=== PATIENT | female | born 1985 | race Caucasian/White ===

== ENCOUNTER 2017-05-27 15:29 | Emergency (ER) | payer BC ==
[~2017-05-27] VITALS: Ht 149.8 cm; Wt 65.8 kg
[~2017-05-27 15:29] MED LIST: AMOXIL500 MG PO; ATIVAN1 MG PO; MEDROL DOSEPAK4 MG PO; NKHM; PREDNISONE; ROBITUSSIN-DM 110 ML PO
[2017-05-27 15:34] VITALS: BP 125/73
[2017-05-27] MEDS ORDERED: CEPHALEXIN500 M1 PO (17:20)
== END 2017-05-27 17:53 | disposition home or self-care (01) ==
LOC: ED 15:29
DX: S90.852A Superficial foreign body, left foot, initial encounter (principal); Z98.890 Other specified postprocedural states; W22.8XXA Striking against or struck by other objects, initial encounter; Y93.89 Activity, other specified; Y92.89 Other specified places as the place of occurrence of the external cause; Y99.9 Unspecified external cause status

== ENCOUNTER 2018-08-05 06:36 | Emergency (ER) | payer BC ==
[~2018-08-05] VITALS: Ht 149.8 cm; Wt 68.0 kg
[~2018-08-05 06:36] MED LIST changes: +CEPHALEXIN500 M1 PO
[2018-08-05] MEDS ORDERED: LOESTRIN 21 1-1 EACH PO (06:49)
[2018-08-05 07:24] LABS: BASO % 0.1 % (0.0-1.0); HEMATOCRIT 38.8 % (37.0-47.0); LYMPH # 0.7 10*3/uL (1.3-4.4); MEAN CELL VOLUME 91.7 fl (81.0-99.0); MEAN CORPUSCULAR HGB 30.7 pg (27.0-31.0); MEAN CORPUSCULAR HGB CONC 33.5 g/dl (33.0-37.0); MEAN PLATELET VOLUME 9.7 fl (9.6-12.3); MONO # 0.2 10*3/uL (0.1-1.0); MONO % 2.6 % (3.0-9.0); NEUT # 8.1 10*3/uL (2.3-7.9); NEUT % 89.1 % (47.0-73.0); PLATELET COUNT AUTOMATED 275 10*3/uL (130-400); RED BLOOD COUNT 4.23 10*6/uL (4.10-5.10); RED CELL DISTRI WIDTH 12.2 % (0-14.5); WHITE BLOOD COUNT 9.1 10*3/uL (4.8-10.8)
[2018-08-05 07:41] LABS: ALBUMIN 3.6 gm/dl (3.1-4.5); ALKALINE PHOSPHATASE 46 U/L (45-117); BUN 10 mg/dl (7-24); CHLORIDE 104 mmol/L (98-107); CREATININE 0.87 mg/dL (0.55-1.02); LIPASE 82 U/L (73-393); SGOT/AST 14 IU/L (3-35); SGPT/ALT 27 U/L (12-78); SODIUM 138 mmol/L (136-145); TOTAL PROTEIN 7.9 gm/dL (6.4-8.2)
[2018-08-05 07:42] LABS: BILIRUBIN NEGATIVE (NEGATIVE); BLOOD 3+ (NEGATIVE); CLARITY CLOUDY (CLEAR); COLOR YELLOW (YELLOW); GLUCOSE NEGATIVE (NEGATIVE); KETONE TRACE (NEGATIVE); LEUKO ESTERASE NEGATIVE (NEGATIVE); NITRITE NEGATIVE (NEGATIVE); PH 5.5 (5.0-9.0); UROBILINOGEN 0.2 E.U./dl (0.2-1.0)
[2018-08-05 07:51] LABS: BACTERIA 3+; EPITHELIAL CELLS 15-20; MUCOUS 1+; RBC TNTC rbc/hpf (0-2)
[2018-08-05 09:39] VITALS: BP 108/60
== END 2018-08-05 09:47 | disposition home or self-care (01) ==
LOC: ED 06:36
PROVIDERS: Emergency Medicine
DX: K80.50 Calculus of bile duct without cholangitis or cholecystitis without obstruction (principal); Z79.899 Other long term (current) drug therapy